=== PATIENT | male | born 1990 | race Caucasian/White ===

== ENCOUNTER 2018-02-28 00:51 | Inpatient (IN) | payer BC ==
[2018-02-28 01:52] LABS: ADD MAN DIFF? NO
[2018-02-28 01:56] LABS: BASO % 0 % (0-3); EOS # 0.1 x10^3/uL (0.0-0.7); EOS % 1 % (0-3); HEMATOCRIT 47.9 % (39.0-53.0); HEMOGLOBIN 17.2 g/dL (13.0-17.5); LYMPH # 2.3 x10^3/uL (1.0-4.8); LYMPH % 23 % (24-48); MEAN CORPUSCULAR HEMOGLOBIN 33 pg (25-35); MEAN CORPUSCULAR HGB CONC 36 g/dL (31-37); MEAN CORPUSCULAR VOLUME 91 fL (79-100); MONO # 0.9 x10^3/uL (0.0-1.1); MONO % 9 % (0-9); NEUT # 6.6 x10^3uL (1.8-7.7); NEUT % 67 % (31-73); PLATELET COUNT 199 x10^3/uL (140-400); RED BLOOD COUNT 5.29 x10^6/uL (4.30-5.70); RED CELL DISTRIBUTION WIDTH 12.9 % (11.5-14.5); WHITE BLOOD COUNT 9.9 x10^3/uL (4.0-11.0)
[2018-02-28 02:08] LABS: ANION GAP 9 (6-14); BLOOD UREA NITROGEN 15 mg/dL (8-26); BUN/CREATININE RATIO 12 (6-20); CARBON DIOXIDE 27 mmol/L (21-32); CHLORIDE 102 mmol/L (98-107); CREATININE 1.3 mg/dL (0.7-1.3); GFR 65.7; GLUCOSE 113 mg/dL (70-99); POTASSIUM 3.7 mmol/L (3.5-5.1); SODIUM 138 mmol/L (136-145)
[2018-02-28 02:13] LABS: ALBUMIN 4.3 g/dL (3.4-5.0); ALBUMIN/GLOBULIN RATIO 1.2 (1.0-1.7); ALK PHOS 75 U/L (46-116); ALT (SGPT) 34 U/L (16-63); AST (SGOT) 28 U/L (15-37); TOTAL BILIRUBIN 1.1 mg/dL (0.2-1.0); TOTAL PROTEIN 7.9 g/dL (6.4-8.2)
[2018-02-28] MEDS: IV NORMAL SALINE 1000ML BAG 1,000 ML IV (02:27)
[2018-02-28] MEDS ORDERED: fentaNYL PF VIAL 100 MCG/2 ML VIAL (02:57)
[2018-02-28] MEDS: fentaNYL PF VIAL 100 MCG/2 ML VIAL IV (03:00)
[2018-02-28] MEDS ORDERED: ONDANSETRON PF 4 MG/2 ML VIAL. IV ×2 (03:30→09:15)
[2018-02-28] MEDS ORDERED: NON FORMULARY ITEM (Melatonin 1 TAB) PO (09:15)
[2018-02-28] MEDS: HYDROcodone/APAP 5/325MG 1 TAB TABLET PO ×3 (09:16→20:34)
[2018-02-28] MEDS: GADOBUTROL 10 MMOL/10 ML VIAL IV (12:45)
[2018-02-28] MEDS: ACETAMINOPHEN 500 MG TABLET PO (14:48)
[2018-02-28] MEDS: NORTRIPTYLINE 10 MG CAPSULE PO (20:34)
[2018-02-28] MEDS: MORPHINE SULFATE 2 MG/ML DISP.SYRIN. IV (22:54)
[2018-03-01] MEDS: MORPHINE SULFATE 2 MG/ML DISP.SYRIN. IV ×6 (02:57→22:13)
[2018-03-01] MEDS ORDERED: IBUPROFEN 600 MG TABLET. PO (10:45)
[2018-03-01] MEDS: NICOTINE 21MG PATCH. TD (11:50)
[2018-03-01] MEDS: NORTRIPTYLINE 10 MG CAPSULE PO (20:43)
[2018-03-02] MEDS: MORPHINE SULFATE 2 MG/ML DISP.SYRIN. IV ×4 (06:31→21:25)
[2018-03-02] MEDS: NICOTINE 21MG PATCH. TD (09:20)
[2018-03-02] MEDS ORDERED: oxyCODONE/APAP 5/325 1 TAB TABLET PO (11:00)
[2018-03-02 13:59] LABS: SEDIMENTATION RATE 6 (0-15)
[2018-03-02 14:20] LABS: AMPHETAMINE/METHAMPHETAMINE NEG (NEG); BARBITURATES NEG (NEG); BENZODIAZEPINES NEG (NEG); CANNABINOIDS NEG (NEG); COCAINE NEG (NEG); ETHANOL, URINE NEG (NEG); METHADONE NEG (NEG); OPIATES POS (NEG); PHENCYCLIDINE NEG (NEG)
[2018-03-02] MEDS: NORTRIPTYLINE 10 MG CAPSULE PO (21:25)
[2018-03-03] MEDS: MORPHINE SULFATE 2 MG/ML DISP.SYRIN. IV (07:26)
[2018-03-03] MEDS: ASA/APAP/CAFFEINE 250/250/65MG TABLET. PO (09:39)
[2018-03-03] MEDS: HYDROcodone/APAP 5/325MG 1 TAB TABLET PO (09:39)
[2018-03-03] MEDS: NICOTINE 21MG PATCH. TD (09:40)
== END 2018-03-03 15:00 | disposition home or self-care (01) | DRG 103 ==
LOC: ER 00:51 → 6 SOUTH 03:50
DX: G43.909 Migraine, unspecified, not intractable, without status migrainosus (principal); I10 Essential (primary) hypertension; F41.9 Anxiety disorder, unspecified; G89.29 Other chronic pain; Z88.0 Allergy status to penicillin
CPT/HCPCS: 36415; 70450; 70553; 80053; 80307; 85025; 85651; 93005; 93306; 93880; 96361; 96374; 99285; 99285-25; A9585; J2270; J3010; J7030